=== PATIENT | female | born 1945 | race Hispanic/Latino ===

== ENCOUNTER 2021-03-17 16:06 | Inpatient (IN) | payer OTHER ==
[~2021-03-17] VITALS: Ht 160 cm; Wt 42.0 kg
[2021-03-17 17:04] LABS: APPEARANCE,URINE Cloudy (CLEAR); BILIRUBIN,URINE Negative (NEGATIVE); COLOR,URINE Yellow (YELLOW); GLUCOSE, URINE (UA) Negative (NEGATIVE); KETONES,URINE 15 mg/dL (NEGATIVE); LEUKOCYTE ESTERASE ,URINE Moderate (NEGATIVE); NITRATE,URINE Negative (NEGATIVE); OCCULT BLOOD,URINE Negative (NEGATIVE); PROTEIN,URINE Negative (NEGATIVE)
[2021-03-17 17:05] LABS: BASOPHILS % (AUTO) 1.2 % (0.0-5.0); EOSINOPHILS % (AUTO) 0.5 % (0.0-8.0); HEMATOCRIT 35.1 % (36-48); LYMPHOCYTES % (AUTO) 24.8 % (21.0-51.0); MEAN CORPUSCULAR HEMOGLOBIN 30.6 pg (27.0-33.0); MEAN CORPUSCULAR HGB CONC 35.6 g/dL (32.0-36.0); MONOCYTES % (AUTO) 9.7 % (3.0-13.0); NEUTROPHILS % (AUTO) 63.4 % (40.0-77.0); PLATELET COUNT (AUTO) 326 K/uL (130-400); RED BLOOD CELL COUNT(AUTO) 4.08 MIL/uL (4.00-5.50); RED CELL DISTRIBUTION WIDTH 13.2 % (11.0-15.5); WHITE BLOOD COUNT (AUTO) 7.7 K/uL (4.8-10.8)
[2021-03-17 17:12] LABS: AMPHET/METH SCREEN,URINE NEGATIVE (NEGATIVE); BARBITURATE SCREEN, URINE NEGATIVE (NEGATIVE); BENZODIAZEPINES SCREEN,URINE NEGATIVE (NEGATIVE); CANNABINOID SCREEN,URINE NEGATIVE (NEGATIVE); COCAINE SCREEN,URINE NEGATIVE (NEGATIVE); OPIATE SCREEN,URINE NEGATIVE (NEGATIVE); PHENCYCLIDINE SCREEN,URINE NEGATIVE (NEGATIVE)
[2021-03-17 17:15] LABS: BACTERIA,URINE Moderate /HPF (None Seen); MUCUS,URINE Rare LPF (None Seen); RBC,URINE 0-1 /HPF (0-1); SQUAMOUS EPITHELIAL CELL,UR 0-2 /HPF (0-2)
[2021-03-17 17:22] LABS: ACETAMINOPHEN < 1 mcg/mL (10-30); ALANINE AMINOTRANSFERASE 32 U/L (12-78); ALBUMIN 4.1 g/dL (3.5-5.0); ALCOHOL, BLOOD < 3 mg/dL (0-10); ASPARTATE AMINOTRANSFERASE 24 U/L (10-37); BILIRUBIN,TOTAL 0.3 mg/dL (0.2-1.0); CARBON DIOXIDE 24 mmol/L (21-32); CREATININE 0.8 mg/dL (0.5-1.5); GLOMERULAR FILTR. RATE CALC 74 mL/min (>60); GLUCOSE,RANDOM 119 mg/dL (70-105); POTASSIUM 3.6 mmol/L (3.5-5.1); SALICYLATE < 2.8 mg/dL (2.8-20.0); SODIUM SERUM 125 mmol/L (136-145); TOTAL PROTEIN, SERUM 7.4 g/dL (6.0-8.3); UREA NITROGEN, BLOOD 16 mg/dL (7-18)
[2021-03-17 17:23] LABS: CHLORIDE 89 mmol/L (101-111)
[2021-03-17] MEDS ORDERED: 0.9%NACL 1000ML 1,000 ML IV SCH ×2 (18:00→19:30)
[2021-03-17] MEDS ORDERED: CEFTRIAXONE 1G VIAL IVP ONE (19:00)
[2021-03-17] MEDS ORDERED: LACTULOSE 20 GM/30 ML UDCUP PO PRN (20:00)
[2021-03-17] MEDS ORDERED: GUAIFENESIN-DM 200/20 MG 10 ML PO PRN (20:00)
[2021-03-17] MEDS ORDERED: NITROGLYCERIN 1GM OINT 1 INCH/1GM TD SCH (20:00)
[2021-03-17] MEDS: CEFTRIAXONE 1G VIAL IV SCH (20:00)
[2021-03-17] MEDS ORDERED: ACETAMINOPHEN 325 MG TAB PO PRN (20:00)
[2021-03-17] MEDS ORDERED: BENZONATATE 100 MG CAPSULE PO SCH (21:00)
[2021-03-17] MEDS: FAMOTIDINE 20MG TAB PO SCH (21:00)
[2021-03-17] MEDS: 0.9%NACL 1000ML 1,000 ML IV SCH (21:46)
[2021-03-17] MEDS ORDERED: BENZONATATE 100 MG CAPSULE PO PRN (22:30)
[2021-03-17] MEDS ORDERED: NITROGLYCERIN 1GM OINT 1 INCH/1GM TD PRN (22:30)
[2021-03-17] MEDS ORDERED: HYDR12.54 PO (23:12)
[2021-03-17] MEDS ORDERED: PRAV20TA4 PO (23:12)
[2021-03-17] MEDS ORDERED: BUSP5TAB3 PO (23:12)
[2021-03-17] MEDS ORDERED: FERR-82 PO (23:12)
[2021-03-17] MEDS ORDERED: METF-444 PO (23:12)
[2021-03-17] MEDS ORDERED: SERT-438 PO (23:12)
[2021-03-17] MEDS ORDERED: LOSA100T58 PO (23:15)
[2021-03-17] MEDS: HYDRALAZINE 20MG/ML VIAL IV PRN (23:19)
[2021-03-18 05:15] VITALS: BP 158/74
[2021-03-18 05:34] LABS: BASOPHILS % (AUTO) 1.3 % (0.0-5.0); EOSINOPHILS % (AUTO) 0.3 % (0.0-8.0); HEMATOCRIT 36.7 % (36-48); LYMPHOCYTES % (AUTO) 18.5 % (21.0-51.0); MEAN CORPUSCULAR HEMOGLOBIN 30.3 pg (27.0-33.0); MEAN CORPUSCULAR HGB CONC 34.6 g/dL (32.0-36.0); MEAN CORPUSCULAR VOLUME 87.6 fL (79-99); MONOCYTES % (AUTO) 9.7 % (3.0-13.0); NEUTROPHILS % (AUTO) 69.8 % (40.0-77.0); PLATELET COUNT (AUTO) 318 K/uL (130-400); RED BLOOD CELL COUNT(AUTO) 4.19 MIL/uL (4.00-5.50); RED CELL DISTRIBUTION WIDTH 13.6 % (11.0-15.5); WHITE BLOOD COUNT (AUTO) 7.5 K/uL (4.8-10.8)
[2021-03-18 05:42] LABS: CREATININE 0.5 mg/dL (0.5-1.5); POTASSIUM 3.6 mmol/L (3.5-5.1)
[2021-03-18] MEDS: 0.9%NACL 1000ML 1,000 ML IV SCH ×2 (05:44→17:52)
[2021-03-18 08:13] VITALS: BP 182/86
[2021-03-18] MEDS: FAMOTIDINE 20MG TAB PO SCH ×2 (10:19→21:03)
[2021-03-18] MEDS: ENOXAPARIN SODIUM 40 MG/0.4 ML SYRINGE SQ SCH (10:19)
[2021-03-18] MEDS: SODIUM BICARBONATE 650 MG TAB PO SCH ×2 (10:19→14:54)
[2021-03-18] MEDS: HYDRALAZINE 20MG/ML VIAL IV PRN ×2 (10:27→17:14)
[2021-03-18 11:40] VITALS: BP 192/97
[2021-03-18] MEDS: SERTRALINE HCL 50 MG TABLET PO SCH (14:53)
[2021-03-18] MEDS: BUSPIRONE HCL 5 MG TABLET PO SCH ×2 (14:54→21:03)
[2021-03-18] MEDS: CEFTRIAXONE 2GM VIAL IVP SCH (14:54)
[2021-03-18] MEDS: ALPRAZOLAM 0.25 MG TABLET PO PRN (15:43)
[2021-03-18 17:08] VITALS: BP 160/72
[2021-03-18] MEDS: METFORMIN HCL 500 MG TABLET PO SCH (17:52)
[2021-03-18 20:00] VITALS: BP 150/66
[2021-03-18] MEDS ORDERED: ZOLPIDEM TARTRATE 5 MG TAB PO PRN (21:00)
[2021-03-18] MEDS ORDERED: BUSPIRONE HCL 5 MG TABLET PO SCH (21:00)
[2021-03-18] MEDS: CEFTRIAXONE 1G VIAL IV SCH (21:03)
[2021-03-18] MEDS: SODIUM CHLORIDE 1,000 MG TAB PO SCH (21:03)
[2021-03-19] VITALS (8 sets, daily range): BP systolic 145–186; BP diastolic 64–84
[2021-03-19] MEDS: 0.9%NACL 1000ML 1,000 ML IV SCH ×3 (02:46→21:28)
[2021-03-19] MEDS: HYDRALAZINE 20MG/ML VIAL IV PRN (03:54)
[2021-03-19 04:55] LABS: HEMATOCRIT 35.8 % (36-48); MEAN CORPUSCULAR HGB CONC 35.2 g/dL (32.0-36.0); MEAN CORPUSCULAR VOLUME 85.2 fL (79-99); RED BLOOD CELL COUNT(AUTO) 4.2 MIL/uL (4.00-5.50); RED CELL DISTRIBUTION WIDTH 13.1 % (11.0-15.5)
[2021-03-19 05:05] LABS: CREATININE 0.5 mg/dL (0.5-1.5); MAGNESIUM 1.5 mg/dL (1.80-2.40)
[2021-03-19 05:13] LABS: POTASSIUM 2.7 mmol/L (3.5-5.1)
[2021-03-19] MEDS ORDERED: LIDOCAINE HCL-MPF 1% 2ML VIAL IV PRN (05:30)
[2021-03-19] MEDS ORDERED: POTASSIUM CHLORIDE 20MEQ/100ML 100 ML IV PRN (05:30)
[2021-03-19] MEDS ORDERED: POTASSIUM CHLORIDE 10% ELIXIR 20 MEQ/15 ML UDCUP PO PRN (05:30)
[2021-03-19] MEDS: MAGNESIUM 2GM PREMIX 50ML 50 ML IV PRN (05:31)
[2021-03-19] MEDS: FAMOTIDINE 20MG TAB PO SCH ×2 (07:47→21:25)
[2021-03-19] MEDS: LOSARTAN 100 MG TABLET PO SCH (07:47)
[2021-03-19] MEDS: ALPRAZOLAM 0.25 MG TABLET PO PRN (07:48)
[2021-03-19] MEDS: FERROUS SULFATE 325 MG TABLET.DR PO SCH (07:48)
[2021-03-19] MEDS: ATORVASTATIN 10 MG TABLET PO SCH (07:48)
[2021-03-19] MEDS: SODIUM CHLORIDE 1,000 MG TAB PO SCH ×2 (07:48→21:25)
[2021-03-19] MEDS: KCL 20 MEQ ERTAB PO PRN ×3 (07:49→15:08)
[2021-03-19] MEDS: BUSPIRONE HCL 5 MG TABLET PO SCH ×2 (07:49→21:26)
[2021-03-19] MEDS: SERTRALINE HCL 50 MG TABLET PO SCH (07:49)
[2021-03-19] MEDS: METFORMIN HCL 500 MG TABLET PO SCH ×2 (07:49→16:10)
[2021-03-19] MEDS: ENOXAPARIN SODIUM 40 MG/0.4 ML SYRINGE SQ SCH (07:51)
[2021-03-19] MEDS ORDERED: POTASSIUM PHOS 15 mMOL+NS250ML 250 ML IV SCH (08:30)
[2021-03-19] MEDS ORDERED: SERTRALINE HCL 50 MG TABLET PO SCH (09:00)
[2021-03-19 10:19] LABS: CREATININE 0.8 mg/dL (0.5-1.5)
[2021-03-19 10:26] LABS: POTASSIUM 2.5 mmol/L (3.5-5.1)
[2021-03-19] MEDS: CEFTRIAXONE 2GM VIAL IVP SCH (15:08)
[2021-03-19] MEDS: ALPRAZOLAM 0.5 MG TABLET PO SCH ×2 (16:08→21:25)
[2021-03-19 16:28] LABS: CREATININE 0.6 mg/dL (0.5-1.5); POTASSIUM 4.5 mmol/L (3.5-5.1)
[2021-03-19] MEDS ORDERED: ALPRAZOLAM 0.25 MG TABLET PO SCH (21:00)
[2021-03-19 22:34] LABS: CREATININE 0.5 mg/dL (0.5-1.5); POTASSIUM 4.2 mmol/L (3.5-5.1)
[2021-03-20] VITALS: BP 152/80
[2021-03-20 04:00] VITALS: BP 156/73
[2021-03-20 04:46] LABS: HEMATOCRIT 32.8 % (36-48); MEAN CORPUSCULAR HEMOGLOBIN 29.8 pg (27.0-33.0); MEAN CORPUSCULAR HGB CONC 34.5 g/dL (32.0-36.0); MEAN CORPUSCULAR VOLUME 86.5 fL (79-99); RED BLOOD CELL COUNT(AUTO) 3.79 MIL/uL (4.00-5.50); RED CELL DISTRIBUTION WIDTH 13.9 % (11.0-15.5); WHITE BLOOD COUNT (AUTO) 5.9 K/uL (4.8-10.8)
[2021-03-20 05:01] LABS: CREATININE 0.5 mg/dL (0.5-1.5); PHOSPHORUS 1.7 mg/dL (2.5-4.9)
[2021-03-20] MEDS: 0.9%NACL 1000ML 1,000 ML IV SCH (05:49)
[2021-03-20 07:58] VITALS: BP 160/78
[2021-03-20] MEDS: ATORVASTATIN 10 MG TABLET PO SCH (08:35)
[2021-03-20] MEDS: METFORMIN HCL 500 MG TABLET PO SCH ×2 (08:35→16:18)
[2021-03-20] MEDS: LOSARTAN 100 MG TABLET PO SCH (08:35)
[2021-03-20] MEDS: FERROUS SULFATE 325 MG TABLET.DR PO SCH (08:36)
[2021-03-20] MEDS: FAMOTIDINE 20MG TAB PO SCH ×2 (08:36→19:48)
[2021-03-20] MEDS: BUSPIRONE HCL 5 MG TABLET PO SCH ×2 (08:36→19:49)
[2021-03-20] MEDS: ENOXAPARIN SODIUM 40 MG/0.4 ML SYRINGE SQ SCH (08:38)
[2021-03-20] MEDS: SODIUM CHLORIDE 1,000 MG TAB PO SCH ×2 (08:39→19:49)
[2021-03-20] MEDS: ALPRAZOLAM 0.5 MG TABLET PO SCH ×3 (08:52→19:48)
[2021-03-20] MEDS: SERTRALINE HCL 50 MG TABLET PO SCH (08:53)
[2021-03-20 11:51] VITALS: BP 146/62
[2021-03-20] MEDS: CEFTRIAXONE 2GM VIAL IVP SCH (14:03)
[2021-03-20 16:00] VITALS: BP 172/70
[2021-03-20 20:00] VITALS: BP 163/67
[2021-03-21] VITALS: BP 163/65
[2021-03-21] MEDS: HYDRALAZINE 20MG/ML VIAL IV PRN (00:20)
[2021-03-21 01:00] VITALS: BP 148/73
[2021-03-21 04:00] VITALS: BP 173/84
[2021-03-21 04:03] LABS: CREATININE 0.5 mg/dL (0.5-1.5); MAGNESIUM 1.7 mg/dL (1.80-2.40); PHOSPHORUS 2.5 mg/dL (2.5-4.9); POTASSIUM 3.6 mmol/L (3.5-5.1)
[2021-03-21] MEDS: MAGNESIUM 2GM PREMIX 50ML 50 ML IV PRN (04:35)
[2021-03-21] MEDS: KCL 20 MEQ ERTAB PO PRN ×2 (04:36→06:03)
[2021-03-21 08:00] VITALS: BP 193/87
[2021-03-21] MEDS: FERROUS SULFATE 325 MG TABLET.DR PO SCH (08:29)
[2021-03-21] MEDS: ATORVASTATIN 10 MG TABLET PO SCH (08:29)
[2021-03-21] MEDS: LOSARTAN 100 MG TABLET PO SCH (08:29)
[2021-03-21] MEDS: METFORMIN HCL 500 MG TABLET PO SCH (08:29)
[2021-03-21] MEDS: ALPRAZOLAM 0.5 MG TABLET PO SCH ×2 (08:29→14:22)
[2021-03-21] MEDS: BUSPIRONE HCL 5 MG TABLET PO SCH (08:30)
[2021-03-21] MEDS: SODIUM CHLORIDE 1,000 MG TAB PO SCH (08:30)
[2021-03-21] MEDS: FAMOTIDINE 20MG TAB PO SCH (08:30)
[2021-03-21] MEDS: ENOXAPARIN SODIUM 40 MG/0.4 ML SYRINGE SQ SCH (08:31)
[2021-03-21] MEDS ORDERED: SERTRALINE HCL 50 MG TABLET PO SCH (09:00)
[2021-03-21] MEDS ORDERED: AMLODIPINE 5 MG TAB PO SCH (09:00)
[2021-03-21 11:46] VITALS: BP 159/79
[2021-03-21] MEDS ORDERED: FLUOXETINE HCL 10 MG CAPSULE PO SCH (12:00)
[2021-03-21] MEDS: CEFTRIAXONE 2GM VIAL IVP SCH (12:40)
[2021-03-21] MEDS ORDERED: AMLO5TAB4 PO (14:06)
[2021-03-21] MEDS ORDERED: LEVO500T90 PO (14:06)
[2021-03-21] MEDS ORDERED: SERT50TA PO (14:06)
== END 2021-03-21 15:50 | disposition home or self-care (01) | DRG 689 ==
LOC: EDH 16:06 → OBSVTOIN 19:52 → EDHIP 19:52 → 3DH 03-18 04:14
PROVIDERS: ADMIT Internal Medicine Critical Care Medicine; ATTEND Internal Medicine Critical Care Medicine
DX: N39.0 Urinary tract infection, site not specified (principal); G93.41 Metabolic encephalopathy; E87.1 Hypo-osmolality and hyponatremia; E11.9 Type 2 diabetes mellitus without complications; F31.9 Bipolar disorder, unspecified; I10 Essential (primary) hypertension; E86.0 Dehydration; F41.1 Generalized anxiety disorder; F43.22 Adjustment disorder with anxiety; B96.20 Unspecified Escherichia coli [E. coli] as the cause of diseases classified elsewhere; Z79.84 Long term (current) use of oral hypoglycemic drugs; Z79.899 Other long term (current) drug therapy
CPT/HCPCS: 36415; 80048; 80053; 80305; 81001; 82140; 83735; 84100; 85025; 85027; 87077; 87088; 87186; G0378; G0481; J0360; J0696; J1650; J3475; J3480; J3490; J7030

== ENCOUNTER → 2023-01-24 | Outpatient (CLI) | payer OTHER ==
[~2023-01-24] MED LIST: AMLO5TAB4 PO; BUSP5TAB3 PO; FERR-82 PO; LEVO-70 PO; LOSA100T59 PO; METF-444 PO; PRAV20TA4 PO; SERT50TA PO
== END | disposition home or self-care (01) ==
LOC: RAH 13:54
PROVIDERS: ATTEND Internal Medicine Cardiovascular Disease
DX: Z13.6 Encounter for screening for cardiovascular disorders (principal)
CPT/HCPCS: 75571